=== PATIENT | male | born 1985 | race Caucasian/White ===

== ENCOUNTER 2022-06-02 08:22 | Emergency (ER) | payer SELFPAY ==
[2022-06-02] MEDS ORDERED: Albuterol/Ipratropium 3.0-0.5 MG/3 ML Neb Soln ONE (08:33)
[2022-06-02] MEDS ORDERED: Albuterol/Ipratropium 3.0-0.5 MG/3 ML Neb Soln NEB ONE (08:34)
[2022-06-02] MEDS ORDERED: predniSONE 20 MG Tab PO ONE (09:06)
== END 2022-06-02 09:31 | disposition home or self-care (01) ==
LOC: JD.ED 08:22
DX: J45.909 Unspecified asthma, uncomplicated (principal); F17.210 Nicotine dependence, cigarettes, uncomplicated
CPT/HCPCS: 94640; 99284; J7512; J7620-GY

== ENCOUNTER 2022-06-10 00:41 | Emergency (ER) | payer SELFPAY | END 2022-06-10 01:54 | disposition home or self-care (01) | LOC: JD.ED 00:41 | DX: R06.00 Dyspnea, unspecified (principal); F17.210 Nicotine dependence, cigarettes, uncomplicated; T48.6X5A Adverse effect of antiasthmatics, initial encounter | CPT/HCPCS: 99283 ==

== ENCOUNTER 2022-06-17 05:07 | Emergency (ER) | payer SELFPAY ==
[2022-06-17] MEDS ORDERED: Albuterol/Ipratropium 3.0-0.5 MG/3 ML Neb Soln NEB ONE (05:23)
[2022-06-17] MEDS ORDERED: Albuterol/Ipratropium 3.0-0.5 MG/3 ML Neb Soln ONE (05:24)
[2022-06-17] MEDS ORDERED: Albuterol 0.083% 2.5 MG/3 ML Neb Soln NEB ONE (05:44)
== END 2022-06-17 06:10 | disposition home or self-care (01) ==
LOC: JD.ED 05:07
DX: J45.901 Unspecified asthma with (acute) exacerbation (principal); Z72.0 Tobacco use
CPT/HCPCS: 94640; 99284; J7620-GY

== ENCOUNTER 2022-06-19 00:05 | Emergency (ER) | payer SELFPAY ==
[2022-06-19] MEDS ORDERED: Albuterol/Ipratropium 3.0-0.5 MG/3 ML Neb Soln NEB ONE (01:06)
[2022-06-19] MEDS ORDERED: Albuterol 6.7 GM Inhaler INH ONE ×2 (01:39→01:54)
== END 2022-06-19 02:00 | disposition home or self-care (01) ==
LOC: JD.ED 00:05
DX: J45.901 Unspecified asthma with (acute) exacerbation (principal); F17.210 Nicotine dependence, cigarettes, uncomplicated; Z86.16 Personal history of COVID-19
CPT/HCPCS: 99284; A9270

== ENCOUNTER 2022-06-24 04:43 | Emergency (ER) | payer SELFPAY ==
[2022-06-24] MEDS ORDERED: Albuterol 0.083% 2.5 MG/3 ML Neb Soln NEB ONE ×2 (05:11→05:51)
[2022-06-24] MEDS ORDERED: Albuterol/Ipratropium 3.0-0.5 MG/3 ML Neb Soln NEB ONE (05:12)
== END 2022-06-24 06:44 | disposition left against medical advice (07) ==
LOC: JD.ED 04:43
DX: J45.901 Unspecified asthma with (acute) exacerbation (principal); Z86.16 Personal history of COVID-19
CPT/HCPCS: 94640; 99283; J7620-GY

== ENCOUNTER 2023-04-13 20:16 | Emergency (ER) | payer MEDICAID ==
[2023-04-13] MEDS ORDERED: Lactated Ringers 1,000 ML IV ONE (20:59)
[2023-04-13] MEDS ORDERED: Ondansetron 4 MG/2 ML SDV IVPUSH ONE (20:59)
[2023-04-13 21:14] LABS: BASOPHILS ABSOLUTE AUTO 0.1 K/mm3 (0.0-0.2); BASOPHILS PERCENT AUTO 0.3 % (0.0-1.0); HEMATOCRIT 41.3 % (42.0-52.0); HEMOGLOBIN 14.9 gm/dl (14.0-18.0); IMMATURE GRAN ABSOLUTE AUTO 0.08 K/mm3 (0.00-0.05); IMMATURE GRAN PERCENT AUTO 0.4 % (0.0-0.4); LYMPHOCYTES PERCENT AUTO 5.2 % (24.0-44.0); MEAN CORPUSCULAR HEMOGLOBIN 30.5 pg (28.0-32.0); MEAN CORPUSCULAR HGB CONC 36.1 g/dl (32.0-36.0); MEAN CORPUSCULAR VOLUME 84.5 fl (83.0-99.0); MEAN PLATELET VOLUME 10.6 fl (9.4-12.4); MONOCYTES ABSOLUTE AUTO 1.4 K/mm3 (0.0-0.8); MONOCYTES PERCENT AUTO 6.7 % (0.0-8.0); NEUTROPHILS ABSOLUTE AUTO 17.5 K/mm3 (1.8-7.7); NEUTROPHILS PERCENT AUTO 87.4 % (41.0-71.0); PLATELET COUNT,PLT 200 K/mm3 (150-400); RED BLOOD CELL COUNT 4.89 M/mm3 (4.52-5.90); WHITE BLOOD CELL COUNT,WBC 20.04 K/mm3 (3.9-11.3)
[2023-04-13 21:36] LABS: A/G RATIO 1.3 (1-2); ALBUMIN 4.4 g/dl (3.4-5.0); ANION GAP 16.7 (5-15); BUN/CREATININE RATIO 11.4 (14-18); CALCIUM 9.5 mg/dL (8.5-10.1); CREATININE 1.4 mg/dL (0.7-1.3); EST CRCL DRUG DOSING (CG) 69.52 mL/min; MAGNESIUM 2.1 mg/dL (1.8-2.4); POTASSIUM,K 3.7 mEq/L (3.5-5.1); PROTEIN TOTAL,TP 7.9 g/dl (6.4-8.2)
== END 2023-04-13 22:36 ==
LOC: JD.ED 20:16
DX: F15.10 Other stimulant abuse, uncomplicated (principal); F12.90 Cannabis use, unspecified, uncomplicated; F17.210 Nicotine dependence, cigarettes, uncomplicated; Z86.16 Personal history of COVID-19
CPT/HCPCS: 36415; 80053; 83735; 85025; 96361; 96374; 99283; J2405; J7120

== ENCOUNTER 2023-05-12 02:33 | Emergency (ER) | payer BC, MEDICAID ==
[2023-05-12] MEDS ORDERED: Albuterol 0.083% 2.5 MG/3 ML Neb Soln NEB ONE (03:11)
[2023-05-12] MEDS ORDERED: Albuterol 6.7 GM Inhaler INH ONE (03:11)
== END 2023-05-12 03:36 | disposition left against medical advice (07) ==
LOC: JD.ED 02:33
DX: J45.909 Unspecified asthma, uncomplicated (principal); Z79.899 Other long term (current) drug therapy; Z86.16 Personal history of COVID-19
CPT/HCPCS: 94640; 99283; A9270; 99282; J7620-GY